=== PATIENT | male | born 1980 | race Caucasian/White ===

== ENCOUNTER 2021-12-03 15:21 | Emergency (ER) | payer OTHER ==
[~2021-12-03] VITALS: Ht 175.3 cm; Wt 99.8 kg
[2021-12-03 15:55] LABS: ABSOLUTE NEUTROPHILS 3.5 thou/uL (1.4-8.2); BASOPHILS 0.8 % (0.0-2.0); EOSINOPHILS 2.5 % (0.0-3.0); HEMATOCRIT 43.5 % (42.0-52.0); LYMPHOCYTES 27.3 % (24.0-44.0); MCH 28.6 pg (26.0-34.0); MCHC 34.4 g/dL (28.0-37.0); MCV 83.1 fL (80.0-100.0); MONOCYTES 14.4 % (1.0-8.0); PLATELET COUNT 374 thou/uL (150-400); RBC 5.24 mil/uL (4.50-6.00); RDW 12.9 % (10.5-14.5); WBC 6.3 thou/uL (4.0-11.0)
[2021-12-03 16:03] LABS: CALCIUM 8.8 mg/dL (8.5-10.1); CREATININE 1.1 mg/dL (0.7-1.3); POTASSIUM 3.9 mmol/L (3.5-5.1)
[2021-12-03 16:09] LABS: ALBUMIN 3.6 g/dL (3.4-5.0); MAGNESIUM 2.4 mg/dL (1.8-2.4); TOTAL BILIRUBIN 0.3 mg/dL (0.2-1.0); TOTAL PROTEIN 7.1 g/dL (6.4-8.2)
[2021-12-03 16:58] VITALS: BP 126/70
[2021-12-03 17:02] LABS: URINE BILIRUBIN NEGATIVE (Negative); URINE BLOOD NEGATIVE (Negative); URINE CLARITY CLEAR; URINE COLOR YELLOW; URINE GLUCOSE-RANDOM* NEGATIVE (Negative); URINE KETONES NEGATIVE (Negative); URINE LEUKOCYTES-REFLEX NEGATIVE (Negative); URINE NITRITE-REFLEX NEGATIVE (Negative); URINE PROTEIN (DIPSTICK) NEGATIVE (Negative); URINE SPECIFIC GRAVITY >= 1.030 (1.005-1.035); URINE UROBILINOGEN 0.2 E.U./dl (0.2-1.0)
[2021-12-03 17:11] LABS: AMP/METHAMP POSITIVE (Negative); BARBITURATES Negative (Negative); BENZODIAZEPINES Negative (Negative); COCAINE Negative (Negative); METHADONE Negative (Negative); OPIATES Negative (Negative); PCP Negative (Negative)
--- NOTE | 2021-12-04 15:14 | EKG ---
[address] [address] ELECTROCARDIOGRAM REPORT Name: HORACIO ZARCO [id number] Admission: 12/03/21 Attend Phys: Discharge: 12/03/21 Date of : 78 Report #: [id number] [facility] ED Test Date: 2021-12-03 Test Time: 15:36:43 Pat Name: HORACIO ZARCO Department: Room: Gender: M Gunnery/Ordnance Officer: [facility] : 1980 Requested By: Rosario Flores Order Number: [id number] MD: Orlando Cook Measurements Intervals [place] Rate: 73 P: 69 ND: 134 QRS: 77 QRSD: 101 T: 85 QT: 385 QTc: 425 Interpretive Statements Sinus rhythm Baseline wander in lead(s) V2 No previous ECG available for comparison Electronically Signed On 12-04-2021 15:14:22 [employer]ASHION DESIGN[employer] by Orlando Cook [email or web address] <ELECTRONICALLY SIGNED> By: Orlando Cook MD, [facility] 12/04/21 1514 1536 1536 Orlando Cook MD, FACC /EPI
== END 2021-12-03 18:00 | disposition home or self-care (01) ==
LOC: ER 15:21
PROVIDERS: Emergency Medicine
DX: R40.4 Transient alteration of awareness (principal); F17.210 Nicotine dependence, cigarettes, uncomplicated